=== PATIENT | female | born 1975 | race Caucasian/White ===

== ENCOUNTER 2016-12-12 08:36 | Emergency (ER) | payer MEDICAID ==
[~2016-12-12] VITALS: Ht 167.6 cm; Wt 68.0 kg
[2016-12-12 08:56] VITALS: BP 118/72
== END 2016-12-12 09:42 | disposition home or self-care (01) ==
LOC: ER 08:36
DX: S00.10XA Contusion of unspecified eyelid and periocular area, initial encounter (principal); R42 Dizziness and giddiness; Z91.041 Radiographic dye allergy status; W22.8XXA Striking against or struck by other objects, initial encounter; Y93.89 Activity, other specified; Y99.8 Other external cause status; Y92.099 Unspecified place in other non-institutional residence as the place of occurrence of the external cause
CPT/HCPCS: 70450; 93005

== ENCOUNTER 2018-07-18 15:48 | Emergency (ER) | payer MEDICAID ==
[~2018-07-18] VITALS: Ht 170.2 cm; Wt 68.0 kg
[2018-07-18] MEDS ORDERED: SODIUM CHLORIDE 0.9% 1,000 ML IV ONE (15:51)
[2018-07-18] MEDS ORDERED: HYDROcodone-ACET 5/325MG TAB PO ONE (16:00)
[2018-07-18 17:22] LABS: Basophils # (auto) 0 uL; Basophils % (auto) 0.2 % (0.0-2.0); Eosinophils # (auto) 0.1 uL; Eosinophils % (auto) 1.3 % (0.0-7.0); Hematocrit 36.6 % (36.0-46.0); Hemoglobin 12.3 g/dL (12.2-16.2); Lymphocytes % (auto) 25.7 % (10.0-50.0); Mean Corpuscular Hemoglobin 32.5 pg (28.0-32.0); Mean Corpuscular Hgb Conc. 33.8 g/dL (32.0-36.0); Mean Corpuscular Volume 96.3 fL (80.0-100.0); Monocytes # (auto) 0.6 uL; Monocytes % (auto) 7.8 % (0.0-12.0); Neutrophils # (auto) 4.9 uL; Nucleated Red Blood Cells % 0.1 %; Platelet Count (auto) 204 10^3/uL (140-450); White Blood Cell 7.6 10^3/uL (4.4-10.8)
[2018-07-18 17:41] LABS: Albumin 3.5 g/dL (3.4-5.0); Anion Gap 7 (5-15); Blood Urea Nitrogen 7 mg/dL (7-18); Calcium 7.8 mg/dL (8.5-10.1); Carbon Dioxide 23 mmol/L (21-32); Chloride 113 mmol/L (98-107); Glucose 69 mg/dL (74-106); Potassium 3.6 mmol/L (3.5-5.1); Sodium 143 mmol/L (136-145)
[2018-07-18 17:43] LABS: Alanine Aminotransferase 19 U/L (13-56); Aspartate Aminotransferase 11 U/L (15-37); BUN/Creatinine Ratio 9.2; GFR African American 107 mL/min; GFR Non-African American 89 mL/min
[2018-07-18 17:48] LABS: Alkaline Phosphatase 67 U/L (45-117); Bilirubin, Total 0.5 mg/dL (0.2-1.0); Total Protein 6.6 g/dL (6.4-8.2)
[2018-07-18 18:30] VITALS: BP 109/65
[2018-07-18 19:08] LABS: Urine Bacteria FEW /hpf (None Seen); Urine Blood TRACE /uL (Negative); Urine Mucus FEW (None Seen); Urine Specific Gravity 1.005 (1.001-1.035); Urine WBC <1 /hpf (0 - 5)
== END 2018-07-18 19:54 | disposition home or self-care (01) ==
LOC: EDBD 15:48 → ER 15:50
DX: S83.8X2A Sprain of other specified parts of left knee, initial encounter (principal); R55 Syncope and collapse; Z91.048 Other nonmedicinal substance allergy status; W18.39XA Other fall on same level, initial encounter; Y93.89 Activity, other specified; Y99.8 Other external cause status; Y92.091 Bathroom in other non-institutional residence as the place of occurrence of the external cause
CPT/HCPCS: 36415; 70450; 73562; 80053; 81001; 84484; 85025; 96360; 99285; J7030

== ENCOUNTER 2018-10-24 08:57 | Emergency (ER) | payer SELFPAY ==
[~2018-10-24] VITALS: Ht 154.9 cm; Wt 57.6 kg
[2018-10-24 09:13] VITALS: BP 112/75
[2018-10-24] MEDS ORDERED: cefTRIAXone SOD 1,000 MG VL IM ONE (09:45)
== END 2018-10-24 10:21 | disposition home or self-care (01) ==
LOC: ER 08:57
DX: J03.90 Acute tonsillitis, unspecified (principal); H66.93 Otitis media, unspecified, bilateral; F12.10 Cannabis abuse, uncomplicated; Z91.041 Radiographic dye allergy status
CPT/HCPCS: 96372; 99283; J0696